=== PATIENT | female | born 1970 | race Two or more races ===

== ENCOUNTER 2020-10-03 15:49 | Outpatient (CLI) | payer OTHER | END 2020-10-03 16:17 | disposition home or self-care (01) | LOC: RAD 15:49 → EDBD 15:49 → RAD 16:17 | PROVIDERS: ATTEND Orthopaedic Surgery | DX: S92.342A Displaced fracture of fourth metatarsal bone, left foot, initial encounter for closed fracture (principal); S92.332A Displaced fracture of third metatarsal bone, left foot, initial encounter for closed fracture ==

== ENCOUNTER 2020-10-08 15:25 | Outpatient (CLI) | payer OTHER ==
[2020-10-12] MEDS ORDERED: AMOX-CLAV 875-1 EACH PO (20:44)
== END 2020-10-08 15:44 | disposition home or self-care (01) ==
LOC: RAD 15:25 → EDBD 15:25 → RAD 15:44
PROVIDERS: ATTEND Orthopaedic Surgery
DX: S92.235A Nondisplaced fracture of intermediate cuneiform of left foot, initial encounter for closed fracture (principal)

== ENCOUNTER 2020-10-09 11:56 | Outpatient (CLI) | payer OTHER | END 2020-10-09 12:10 | disposition home or self-care (01) | LOC: EDBD 11:56 → LAB 11:56 | PROVIDERS: ATTEND Orthopaedic Surgery | DX: D64.89 Other specified anemias (principal); E88.89 Other specified metabolic disorders; E83.42 Hypomagnesemia; D68.8 Other specified coagulation defects; N39.0 Urinary tract infection, site not specified; B95.62 Methicillin resistant Staphylococcus aureus infection as the cause of diseases classified elsewhere; E03.8 Other specified hypothyroidism; E11.9 Type 2 diabetes mellitus without complications ==

== ENCOUNTER 2020-10-12 10:56 | Day surgery (SDC) | payer OTHER ==
[2020-10-12] MEDS ORDERED: AMOX-CLAV 875-1 EACH PO ×2 (20:44)
== END 2020-10-13 01:10 | disposition home or self-care (01) ==
LOC: CIR.AMB 10:56
PROVIDERS: ATTEND Orthopaedic Surgery
DX: S92.325A Nondisplaced fracture of second metatarsal bone, left foot, initial encounter for closed fracture (principal); Z20.822 Contact with and (suspected) exposure to COVID-19
CPT/HCPCS: 28485; C1776

== ENCOUNTER 2020-12-12 15:26 | Outpatient (CLI) | payer OTHER ==
[~2020-12-12 15:26] MED LIST: AMOX-CLAV 875-1 EACH PO
== END 2020-12-12 15:38 | disposition home or self-care (01) ==
LOC: RAD 15:26
PROVIDERS: ATTEND Orthopaedic Surgery
DX: S92.325D Nondisplaced fracture of second metatarsal bone, left foot, subsequent encounter for fracture with routine healing (principal); S92.335D Nondisplaced fracture of third metatarsal bone, left foot, subsequent encounter for fracture with routine healing; S92.345D Nondisplaced fracture of fourth metatarsal bone, left foot, subsequent encounter for fracture with routine healing

== ENCOUNTER → 2020-12-25 11:41 | Outpatient (CLI) | payer OTHER | END | disposition home or self-care (01) | LOC: LAB 11:41 | PROVIDERS: ATTEND Orthopaedic Surgery | DX: E55.9 Vitamin D deficiency, unspecified (principal); E03.9 Hypothyroidism, unspecified; E11.9 Type 2 diabetes mellitus without complications; I10 Essential (primary) hypertension; I49.9 Cardiac arrhythmia, unspecified; D68.8 Other specified coagulation defects; N39.0 Urinary tract infection, site not specified; D64.9 Anemia, unspecified; E88.9 Metabolic disorder, unspecified; Z22.322 Carrier or suspected carrier of Methicillin resistant Staphylococcus aureus ==

== ENCOUNTER 2021-01-01 05:47 | Day surgery (SDC) | payer OTHER | END 2021-01-01 15:00 | disposition home or self-care (01) | LOC: CIR.AMB 05:47 | PROVIDERS: ATTEND Orthopaedic Surgery | DX: T84.84XA Pain due to internal orthopedic prosthetic devices, implants and grafts, initial encounter (principal); S92.352G Displaced fracture of fifth metatarsal bone, left foot, subsequent encounter for fracture with delayed healing; Z20.822 Contact with and (suspected) exposure to COVID-19 ==

== ENCOUNTER 2021-04-18 10:52 | Outpatient (CLI) | payer OTHER | END 2021-04-18 11:00 | disposition home or self-care (01) | LOC: RAD 10:52 | PROVIDERS: ATTEND Orthopaedic Surgery | DX: S92.325D Nondisplaced fracture of second metatarsal bone, left foot, subsequent encounter for fracture with routine healing (principal); S92.345D Nondisplaced fracture of fourth metatarsal bone, left foot, subsequent encounter for fracture with routine healing ==